=== PATIENT | female | born 1960 | race African-American/Black ===

== ENCOUNTER 2017-12-10 04:24 | Emergency (ER) | payer OTHER, MEDICAID ==
[~2017-12-10] VITALS: Ht 172.7 cm; Wt 81.0 kg
[~2017-12-10 04:24] MED LIST: ALPR2TAB2 PO; HYDR-523 PO
[2017-12-10 04:31] VITALS: BP 125/75
== END 2017-12-10 05:26 | disposition left against medical advice (07) ==
LOC: ER 04:24
DX: M79.602 Pain in left arm (principal); M79.89 Other specified soft tissue disorders; R42 Dizziness and giddiness; Z53.21 Procedure and treatment not carried out due to patient leaving prior to being seen by health care provider

== ENCOUNTER 2021-09-29 16:45 | Emergency (ER) | payer BC, MEDICAID ==
[~2021-09-29] VITALS: Ht 172.7 cm; Wt 79.0 kg
[2021-09-29 17:18] VITALS: BP 157/107
[2021-09-29] MEDS ORDERED: IBUP-2028 MT (21:56)
[2021-09-29] MEDS ORDERED: LIDO1ADH23 TP (23:04)
[2021-09-29] MEDS ORDERED: METH-653 MT (23:04)
== END 2021-09-29 23:17 | disposition home or self-care (01) ==
LOC: ER 17:03
DX: M25.532 Pain in left wrist (principal); M54.9 Dorsalgia, unspecified; G89.29 Other chronic pain; W18.39XA Other fall on same level, initial encounter; Y93.89 Activity, other specified; Y92.89 Other specified places as the place of occurrence of the external cause; Y99.8 Other external cause status; I10 Essential (primary) hypertension; Z87.891 Personal history of nicotine dependence; Z79.899 Other long term (current) drug therapy
CPT/HCPCS: 29125; 71045; 73130; 99284

== ENCOUNTER 2023-05-27 17:39 | Emergency (ER) | payer BC, MEDICAID ==
[~2023-05-27] VITALS: Ht 170.2 cm; Wt 74.0 kg
[~2023-05-27 17:39] MED LIST changes: +IBUP-2028 MT; +LIDO1ADH23 TP; +METH-653 MT
[2023-05-27 17:42] VITALS: PULSE 104; RESP 20
[2023-05-27 17:46] VITALS: BP 165/132; TEMP 99.2; O2SAT 98
[2023-05-27 20:20] LABS: BASOPHILS % 0.5 % (0.0-2.0); HEMOGLOBIN. 11.5 g/dL (12.0-16.0); LYMPHOCYTES % 37.8 % (20.0-50.0); MEAN CORPUSCULAR VOLUME 84.6 fL (81.0-99.0); MEAN PLATELET VOLUME 9.1 fl (7.4-10.4); MONOCYTES % 14.7 % (2.0-8.0); PLATELET 212 x1000/uL (130-400); RED BLOOD CELL COUNT 4.26 mill/uL (4.2-5.4); RED CELL DISTRIBUTION WIDTH 13.9 % (11.6-14.6); WHITE BLOOD COUNT 3.7 x1000/uL (4.5-11.0)
[2023-05-27 20:27] LABS: PROTHROMBIN TIME 10.8 sec (9.6-11.0)
[2023-05-27 20:41] LABS: ALANINE AMINOTRANSFERASE 18 IU/L (10-49); ALBUMIN 4.1 g/dL (3.2-4.8); ASPARTATE AMINOTRANSFERASE 22 IU/L (<34); BILIRUBIN TOTAL 0.5 mg/dL (0.1-1.0); CALCIUM 8.9 mg/dL (8.7-10.4); CARBON DIOXIDE 27 mEq/L (21-32); CHLORIDE 107 mEq/L (98-107); CREATININE 0.9 mg/dL (0.6-1.0); GLUCOSE 124 mg/dL (70-105); POTASSIUM 3.5 mEq/L (3.5-5.1); PROTEIN TOTAL 6.4 g/dL (6.0-8.3); SODIUM 141 mEq/L (136-145); UREA NITROGEN BLOOD 9 mg/dL (9-23)
[2023-05-27 20:42] LABS: TROPONIN I HIGH SENSITIVITY < 4 ng/L (3.0-34)
[2023-05-27] MEDS ORDERED: MAG355OR21 MT (22:25)
[2023-05-27] MEDS ORDERED: ACET-2708 MT (22:25)
[2023-05-27] MEDS ORDERED: ONDA4TAB50 MT (22:25)
== END 2023-05-27 23:00 | disposition home or self-care (01) ==
LOC: ER 17:39
DX: B34.9 Viral infection, unspecified (principal); I10 Essential (primary) hypertension; Z98.890 Other specified postprocedural states
CPT/HCPCS: 36415; 71045; 80053; 83605; 83880; 84145; 84484; 85025; 93005; 99285

== ENCOUNTER 2023-08-12 11:09 | Emergency (ER) | payer BC ==
[~2023-08-12] VITALS: Ht 171.4 cm; Wt 82.0 kg
[~2023-08-12 11:09] MED LIST changes: +ACET-2708 MT; +MAG355OR21 MT; +ONDA4TAB50 MT
[2023-08-12 11:59] VITALS: BP 128/88; PULSE 64; RESP 16; TEMP 97.8; O2SAT 98
[2023-08-12] MEDS: LIDOCAINE HCL/PF 1% 10 MG/ML 5ML VIAL INFIL ONE (12:30)
[2023-08-12] MEDS: BACITRACIN ZINC OINT UDPKT TOP ONE (12:30)
[2023-08-12] MEDS ORDERED: BO1 TP (13:51)
== END 2023-08-12 14:04 | disposition home or self-care (01) ==
LOC: ER 11:09
DX: T16.1XXA Foreign body in right ear, initial encounter (principal); F31.9 Bipolar disorder, unspecified; J44.9 Chronic obstructive pulmonary disease, unspecified; I10 Essential (primary) hypertension; Z98.890 Other specified postprocedural states; X58.XXXA Exposure to other specified factors, initial encounter; Y93.89 Activity, other specified; Y92.89 Other specified places as the place of occurrence of the external cause; Y99.8 Other external cause status
CPT/HCPCS: 99285; 10120; J3490; 20520